=== PATIENT | male | born 2000 | race Two or more races ===

== ENCOUNTER → 2020-01-11 | Outpatient (CLI) | payer MEDICAID | END | disposition home or self-care (01) | LOC: LAB 07:46 | PROVIDERS: ATTEND Nurse Practitioner Family | DX: Z11.3 Encounter for screening for infections with a predominantly sexual mode of transmission (principal); N39.0 Urinary tract infection, site not specified; R36.9 Urethral discharge, unspecified; N50.811 Right testicular pain | CPT/HCPCS: 86592; 86695; 86696; 87086 ==